=== PATIENT | female | born 1945 | race African-American/Black ===

== ENCOUNTER 2019-12-01 17:04 | Emergency (ER) | payer MEDICARE, MEDICAID | END 2019-12-01 18:42 | disposition home or self-care (01) | LOC: BURERS 17:04 | DX: S40.022A Contusion of left upper arm, initial encounter (principal); I10 Essential (primary) hypertension; J45.909 Unspecified asthma, uncomplicated; V89.2XXA Person injured in unspecified motor-vehicle accident, traffic, initial encounter | CPT/HCPCS: 99283 ==

== ENCOUNTER 2025-04-07 12:37 | Emergency (ER) | payer MEDICARE, MEDICAID ==
[2025-04-07 13:03] LABS: Glucose, Urine (Dipstick) Negative (Negative); Leukocyte Negative (Negative); Protein, Urine (Dipstick) Negative (Neg-Trace); Specific Gravity, Urine 1.015 (1.005-1.030)
[2025-04-07 13:08] LABS: CAUTI Indications for Culture Alt mental st,lethar; RBC/HPF None Seen HPF (0-3); WBC/HPF 0-3 HPF (0-3)
[2025-04-07 13:09] LABS: Bacteria/HPF 2+ HPF (None Seen)
[2025-04-07 13:10] LABS: Urine Culture Reflex No No
[2025-04-07 13:19] LABS: ALT (SGPT) 11 U/L (Less than 34); AST (SGOT) 26 U/L (11-34); Albumin 3.7 g/dL (3.1-4.5); Alkaline Phosphatase 114 U/L (40-110); Anion Gap 18 mmol/L (10-20); BUN (Urea Nitrogen) 28 mg/dL (9.8-20.1); Bilirubin, Total 0.4 mg/dL (0.3-1.2); Calc. Creatinine Clearance 0 mL/min (70-130); Calcium 9.6 mg/dL (7.8-10.44); Carbon Dioxide 25 mmol/L (23-31); Chloride 102 mmol/L (98-107); Globulin 4.4 g/dL (2.4-3.5); Glucose 108 mg/dL (83-110); Magnesium 1.3 mg/dL (1.6-2.6); Potassium 4.0 mmol/L (3.5-5.1); Sodium 141 mmol/L (136-145)
[2025-04-07 13:20] LABS: Troponin I Less than 0.010 ng/mL (< 0.028)
[2025-04-07] MEDS ORDERED: Magnesium 2 GM/50 ML BAG (IN WATER) ONE (13:24)
[2025-04-07 13:28] LABS: Hematocrit 39.3 % (36.0-47.0); Hemoglobin 12.9 g/dL (12.0-16.0); Mean Corpuscular Hemoglobin 28.0 pg (27.0-31.0); Mean Corpuscular Volume 85.3 fl (78.0-98.0); Platelet Count 330 10x3/uL (130-400); Red Blood Cell (RBC) Count 4.61 mill/uL (4.20-5.40); White Blood Cell (WBC) Count 8.1 10x3/uL (4.8-10.8)
[2025-04-07 13:40] LABS: MDiff Complete? YES; Platelet Adequacy Comment Appears Adequate
== END 2025-04-07 15:27 | disposition home or self-care (01) ==
LOC: BURERS 12:37
DX: E83.42 Hypomagnesemia (principal); I10 Essential (primary) hypertension; Z79.899 Other long term (current) drug therapy
CPT/HCPCS: 80053; 81001; 83735; 84443; 84484; 85025; 87428; 93005; 96365; 96366; J3475

== ENCOUNTER 2025-05-04 09:39 | Emergency (ER) | payer MEDICARE, MEDICAID ==
[2025-05-04 11:16] LABS: Glucose, Urine (Dipstick) Negative (Negative); Leukocyte Negative (Negative); Protein, Urine (Dipstick) Negative (Neg-Trace); Specific Gravity, Urine 1.015 (1.005-1.030)
[2025-05-04 11:26] LABS: Bacteria/HPF Rare-Few HPF (None Seen); CAUTI Indications for Culture Pelvic or flank pain; RBC/HPF 0-3 HPF (0-3); WBC/HPF None Seen HPF (0-3)
[2025-05-04 11:27] LABS: Urine Culture Reflex No No
== END 2025-05-04 12:48 | disposition home or self-care (01) ==
LOC: BURERS 09:39
DX: R42 Dizziness and giddiness (principal); I10 Essential (primary) hypertension; Z79.899 Other long term (current) drug therapy
CPT/HCPCS: 70450; 71045; 81001; 93005; 96372; J2060